=== PATIENT | female | born 1995 | race Caucasian/White ===

== ENCOUNTER 2017-02-17 21:37 | Emergency (ER) | payer BC ==
[~2017-02-17] VITALS: Ht 175.3 cm; Wt 88.1 kg
[2017-02-17 21:49] VITALS: TEMP 37.2; Ht 175.3 cm; Wt 88.1 kg
[2017-02-17] MEDS ORDERED: SULF800T23 PO (22:11)
[2017-02-17] MEDS ORDERED: CEPH500C PO (22:11)
[2017-02-17] MEDS ORDERED: CEPHALEXIN 500MG HOME PACK 1 EA BTL PO ONE (22:15)
[2017-02-17] MEDS ORDERED: SEPTRA DS HOME PACK 1 EA VIAL PO ONE (22:15)
[2017-02-17] MEDS ORDERED: FLUO40CA8 PO (22:19)
[2017-02-17] MEDS ORDERED: ASCO500T3 PO (22:19)
[2017-02-17] MEDS ORDERED: OXYC-57 PO (22:19)
[2017-02-17] MEDS ORDERED: GABA-113 PO (22:19)
[2017-02-17] MEDS ORDERED: MULT-506 PO (22:19)
[2017-02-17] MEDS ORDERED: ACET-1256 PO (22:19)
[2017-02-17] MEDS ORDERED: BCPILLS PO (22:19)
[2017-02-17] MEDS ORDERED: CHOL1000 PO (22:19)
[2017-02-17 22:25] VITALS: BP 136/79; PULSE 98; O2SAT 99
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
== END 2017-02-17 22:23 | disposition home or self-care (01) ==
LOC: C.EDB 21:39
DX: L03.114 Cellulitis of left upper limb (principal); Z79.3 Long term (current) use of hormonal contraceptives; Z79.899 Other long term (current) drug therapy